=== PATIENT | female | born 1975 | race Caucasian/White ===

== ENCOUNTER 2018-09-07 21:57 | Emergency (ER) | payer SELFPAY ==
[~2018-09-07] VITALS: Ht 170.2 cm; Wt 65.9 kg
[~2018-09-07 21:57] MED LIST: NOCURR
[2018-09-07 22:03] VITALS: BP 140/86
== END 2018-09-07 22:15 | disposition left against medical advice (07) ==
LOC: EMS 21:58
DX: M54.2 Cervicalgia (principal); M54.9 Dorsalgia, unspecified; Z53.21 Procedure and treatment not carried out due to patient leaving prior to being seen by health care provider